=== PATIENT | female | born 1940 | race Caucasian/White ===

== ENCOUNTER → 2018-10-10 10:51 | Outpatient (CLI) | payer MEDICARE, SELFPAY ==
--- NOTE | 2018-10-10 | DI.RAD.S_ITS ---
PROCEDURE: XR LUMBAR SPINE MIN 4V INDICATIONS: LUMBAR SPINE PAIN TECHNIQUE: 5 views of the lumbar spine acquired. COMPARISON: None. FINDINGS: Bones: 5 nonrib-bearing vertebrae are present. There is grade 1 anterolisthesis of L4 on L5. No vertebral body compression fractures. N degenerative endplate changes and bilateral facet arthrosis at L4-5 and L5-S1 levels are seen. o suspicious bony lesions. Soft tissues: Overlying bowel gas pattern is normal. No suspicious soft tissue calcifications. Oblique views: No definite pars defect is seen. Suggestion of bilateral bony foraminal narrowing at L4-5 level is seen. IMPRESSION: Grade 1 anterolisthesis of L4 and L5. No compression fracture. Degenerative disc disease and bilateral facet arthrosis in lower lumbar spine. No gross pars defect. Suggestion of bilateral neural foramina narrowing at L4-5 level. Dictated by: Shree Cornejo M.D. on 10/10/2018 at 12:23 Approved by: Shree Cornejo M.D. on 10/10/2018 at 12:24
== END ==
PROVIDERS: PCP Nurse Practitioner Family; Visit Provider Physical Medicine & Rehabilitation
DX: M54.5 Low back pain (principal); M43.16 Spondylolisthesis, lumbar region; M51.36 Other intervertebral disc degeneration, lumbar region; M51.37 Other intervertebral disc degeneration, lumbosacral region; M47.816 Spondylosis without myelopathy or radiculopathy, lumbar region; M47.817 Spondylosis without myelopathy or radiculopathy, lumbosacral region
CPT/HCPCS: 72110; 99215

== ENCOUNTER 2018-11-22 14:26 | Outpatient (CLI) | payer MEDICARE, SELFPAY ==
[2018-11-22] VITALS (8 sets, daily range): BP systolic 105–166; BP diastolic 44–62; PULSE 51–64; RESP 16–20; TEMP 36.1; O2SAT 92–100
--- NOTE | 2018-11-22 14:28 | DI.RAD.S_ITS ---
PROCEDURE: PAIN L/S FACET INJ/BLK 1ST SERENA COMPARISON: None. INDICATIONS: SPONDYLOSIS FINDINGS: Fluoroscopic needle placement overlying L4-5 and L5-S1 is identified. IMPRESSION: Fluoroscopic needle guidance as above. Recommend correlation real-time operative report. Dictated by: Corazon Mo M.D. on 11/22/2018 at 18:31 Approved by: Corazon Mo M.D. on 11/22/2018 at 18:31
[2018-11-22] MEDS: MIDAZOLAM 5 MG/5 ML VIAL IV (15:00)
[2018-11-22] MEDS: fentaNYL 100 MCG/2 ML INJ 50 MCG IV (15:00)
[2018-11-22] MEDS: IOPAMIDOL 15 ML VIAL 3 ML INJ (15:11)
[2018-11-22] MEDS: BUPIVACAINE 0.5% (PF) VIAL 2 ML INJ (15:11)
[2018-11-22] MEDS: LIDOCAINE 1% 20 ML 10 ML INJ (15:12)
[2018-11-22] MEDS: BETAMETHASONE 30 MG/5 ML MDV 12 MG INJ (15:12)
--- NOTE | 2018-11-22 15:21 | P.PCN_ITS ---
Procedures Date/Time Date of procedure: 11/22/18 Time of procedure: 15:22 General Procedure description: PREOP DIAGNOSIS 1. FACET ARTHROPATHY 2. AXIAL LBP 3. MULTILEVEL DDD POST OP DIAGNOSIS 1. FACET ARTHROPATHY 2. AXIAL LBP 3. MULTILEVEL DDD PROCEDURES 1. FLUORSCOPICALLY GUIDED CONTRAST CONTROLLED FACET JOINT INJECTIONS BILATERAL L4/5, L5/S1 PHYSICIAN: Teofilo Alonzo, DO INDICATIONS Praveen is referred by RAIZA Puente for treatment of Axial LBP FINDINGS Multilevel Facet Arthropathy with Clinically significant axial LBP DESCRIPTION OF PROCEDURE Fluoroscopically guided, contrast-controlled bilateral L4/5, L5/S1 facet joint injections. Following review of allergy and review of potential side effects and complications, including, but not necessarily limited to, infection, allergic reaction, local tissue breakdown, stroke, temporary or permanent nerve injury, paralysis, and possible , the patient indicated that the patient understood and agreed to proceed. An informed consent document was signed by the patient, witnessed by a nurse, and placed in the patient's chart. Additionally, other treatment options including medications, modalities, and physical therapy were reviewed with the patient. After review of previous anaesthesic history and IV conscious sedation the patient was deemed safe to proceed with todays procedure with IV conscious sedation as ASA class II designation. Safety time-out was performed to confirm patient ID, procedure to be performed and site of procedure. IV sedation was accomplished with a combination of 2mg of Versed and 50mcg of Fentanyl was administered by the RN after DO order, titrated to patient comfort during the course of the procedure while the patient remained responsive to all verbal commands In the prone position, following sterile prep and drape of the lumbar region, the posterior aspect of the L4/5, L5/S1 facet joints were identified fluoroscopically. The skin was anesthetized via a 25-gauge 1.5-inch needle with 1% lidocaine solution into the corresponding facet joints. At this point, a 22- gauge 3.5-inch spinal needle was atraumatically introduced and advanced under fluoroscopic guidance into the corresponding facet joints. Following negative aspiration, injections of approximately 0.2-cc of Isovue 200 confirmed interarticular placement without vascular uptake. The identical procedure was then performed at the L4/5, L5/S1 facet joints on the left. Radiological data, including multiple fluoroscopic views of the lumbosacral spine, reveal a spinal needle at the L4/5, L5/S1 facet joints bilaterally. Subsequent views show flow of contrast material both superiorly and inferiorly within the joint space without vascular or intrathecal uptake. At this point, a total of 0.5 cc including a mixture of 0.25cc Marcaine and 0.25cc betamethasone was injected without complication into each of the corresponding facet joints. The patient tolerated the procedure well without signs or symptoms of complications prior to transfer to the recovery area continued monitoring without incident. The patient was then transferred to the recovery area where they were observed for an appropriate period of time after the injection. The patient reported a VAS score of 7 prior to the procedure and a post- procedure VAS of 0. Total Fluoroscopy Time: 20.3 seconds Total Conscious Sedation Time: 24min POST OP INSTRUCTIONS The patient was provided a Pain Log to continue to record their response to the target-specific procedure prior to follow-up visit with their referring physician. Additionally, specific post-injection care instructions and a contact number to our office were provided if concerns arise regarding possible complications associated with the procedure are suspected. Teofilo Alonzo DO Complications: none
--- NOTE | 2018-11-22 15:30 | PC.NURSE ---
ACCEPTED CARE OF PT IN POST PROC AREA IN STABLE CONDITION
== END 2018-11-22 16:07 | disposition home or self-care (01) ==
PROVIDERS: Family Provider Nurse Practitioner Family; PCP Nurse Practitioner Family; Visit Provider Physical Medicine & Rehabilitation
DX: M47.817 Spondylosis without myelopathy or radiculopathy, lumbosacral region (principal)
CPT/HCPCS: 64493; 64494; 99152; J0702; J2250; J3010

== ENCOUNTER 2019-02-14 08:52 | Outpatient (CLI) | payer MEDICARE, SELFPAY ==
[2019-02-14] VITALS (12 sets, daily range): BP systolic 103–160; BP diastolic 40–71; PULSE 47–54; RESP 14–18; TEMP 36.2; O2SAT 92–100
--- NOTE | 2019-02-14 08:55 | DI.RAD.S_ITS ---
PROCEDURE: PAIN L/S FACET INJ/BLK 1ST SERENA COMPARISON: [facility], , PAIN L/S FACET INJ/BLK 1ST SERENA, 11/22/2018, 15:07. INDICATIONS: SPONDYLOSIS FINDINGS: Fluoroscopic spot filming was performed to verify placement of spinal needles at the L4, L5, S1 level(s), as labeled on the films. Appropriate location(s) of the needle tip(s) was confirmed by injection of iodinated contrast. Dictated by: Maciej Hebert M.D. on 02/14/2019 at 11:27 Approved by: Maciej Hebert M.D. on 02/14/2019 at 11:27
[2019-02-14] MEDS: MIDAZOLAM 5 MG/5 ML VIAL IV (09:54)
[2019-02-14] MEDS: fentaNYL 100 MCG/2 ML INJ 50 MCG IV (09:54)
[2019-02-14] MEDS: IOPAMIDOL 15 ML VIAL 3 ML INJ (10:10)
[2019-02-14] MEDS: LIDOCAINE 1% 20 ML 5 ML INJ (10:10)
[2019-02-14] MEDS: BUPIVACAINE 0.5% (PF) VIAL 2 ML INJ (10:10)
--- NOTE | 2019-02-14 10:18 | PM.PROC.1 ---
Procedures Date/Time Date of procedure: 02/14/19 Time of procedure: 10:18 General Procedure description: Procedure description: 1. FACET ARTHROPATHY PROCEDURES: 1. BILATERAL- L4, L5 and S1 MB BLOCKS PHYSICIAN: DO MARY Chin Sara is referred by for treatment of Bilateral Axial LBP. DESCRIPTION OF PROCEDURE Fluoroscopically guided, contrast-controlled bilateral L4, L5 and S1 medial branch blocks with 0.5cc of 0.5% Marcaine. Following review of allergy and review of potential side effects and complications, including, but not necessarily limited to, infection, allergic reaction, local tissue breakdown, nerve injury, paralysis, stroke and possible , the patient indicated that the patient understood and agreed to proceed. An informed consent document was signed by the patient, witnessed by a nurse, and placed in the patient's chart. After review of previous anaesthesic history and IV conscious sedation the patient was deemed safe to proceed with todays procedure with IV conscious sedation as ASA class II designation. Safety time-out was performed to confirm patient ID, procedure to be performed and site of procedure. IV sedation was accomplished with a combination of 2mg of Versed and 50mcg of Fentanyl was administered by the RN after DO order, titrated to patient comfort during the course of the procedure while the patient remained responsive to all verbal commands In the prone position, following sterile prep and drape of the lumbar region, the right L4, L5 and S1 anatomical location of the medial branch of the dorsal ramus was identified fluoroscopically. Subsequently an anesthetic skin wheal using 1% lidocaine solution was initiated at each of the anatomical spots. Subsequently then a 22-gauge 3.5-inch spinal needle was atraumatically introduced and advanced under fluoroscopic guidance at each of the corresponding sites at the right L4, L5 and S1 MB. After negative aspiration, 0.2cc of Isovue 200 was injected, confirming placement without vascular or intrathecal uptake. Subsequently then 0.5cc of 0.5% Marcaine solution was injected at each of the corresponding sites at the right L4, L5 and S1 medial branch locations. The identical procedure was replicated on the left. The patient tolerated the procedure well without signs or symptoms of complications prior to transfer to the recovery area continued monitoring without incident. Post-procedure, the patient was monitored initiating provocative activities to measure the amount of relief from block of the facetogenic pain. The patient reported a VAS of 7 prior to the procedure and a post-procedure VAS of 1. It has been a pleasure to assist in the diagnostic and therapeutic care of your patient. Total Fluoroscopy Time: 24.8 seconds Total Conscious Sedation Time: 24min POST OP INSTRUCTIONS The patient was provided with a Pain Log to complete over the next several hours and subsequent days prior to the patient's follow up with the ordering physician. If the patient has manager process excellence relief to the solution applied, then they may be a candidate for medial branch rhizotomy. The patient is aware, was provided, once again, with a Pain Log and will follow up with the referring physician for review and clinical correlation Teofilo Alonzo DO Complications: none
--- NOTE | 2019-02-14 10:31 | PC.NURSE ---
Post procedure note: Time out at 0953. Medicated per providers orders. Patient tolerated procedure well. VSS throughout. Able to sit and transfer to wheelchair without difficulties. Handoff report given to Luther Freeman RN at 1021. Patient able to transfer from w/c to recliner without pain 0/10 and no unusual numbness or tingling to lower extremities.
== END 2019-02-14 10:50 | disposition home or self-care (01) ==
LOC: RAD 08:54
PROVIDERS: PCP Nurse Practitioner Family; Visit Provider Physical Medicine & Rehabilitation
DX: M47.816 Spondylosis without myelopathy or radiculopathy, lumbar region (principal); M47.817 Spondylosis without myelopathy or radiculopathy, lumbosacral region
CPT/HCPCS: 64493; 64494; 99152; J0702; J1100; J2250; J3010